=== PATIENT | male | born 1990 | race Caucasian/White ===

== ENCOUNTER 2021-12-19 11:27 | Emergency (ER) | payer OTHER ==
[2021-12-19] MEDS ORDERED: Sodium Chloride 0.9% 10 ML Syringe FLUSH PRN (11:37)
[2021-12-19] MEDS ORDERED: Nitroglycerin 0.4 MG Tab.SL SL PRN (11:38)
[2021-12-19] MEDS ORDERED: Aspirin 81 MG Tab.Chew PO ONE (11:38)
[2021-12-19 12:00] LABS: PTT,PARTIAL THROMBOPLSTIN TIME 28.3 SEC (22.0-34.0)
[2021-12-19 12:05] LABS: CHLORIDE,CL 105 mmol/L (98-107); SODIUM,NA 141 mmol/L (136-145)
== END 2021-12-19 14:07 | disposition home or self-care (01) ==
LOC: DL.ED 11:27
DX: R07.89 Other chest pain (principal); R03.0 Elevated blood-pressure reading, without diagnosis of hypertension; E66.9 Obesity, unspecified; Z68.41 Body mass index [BMI] 40.0-44.9, adult
CPT/HCPCS: 36415; 71045; 80053; 83690; 84484; 85025; 85379; 85610; 85730; 93005; 93010; 99283; 99285-25; A9270-GY

== ENCOUNTER 2022-02-22 17:07 | Emergency (ER) | payer OTHER ==
[2022-02-22] MEDS ORDERED: Cyclobenzaprine 10 MG Tab PO ONE (17:08)
[2022-02-22] MEDS ORDERED: Ketorolac 30 MG/ML SDV IVPUSH ONE (17:17)
[2022-02-22] MEDS ORDERED: methylPREDNISolone Sodium Succinate 125 MG/2 ML SDV IVPUSH ONE (18:05)
[2022-02-22] MEDS ORDERED: Cyclobenzaprine 10 MG Tab ONE (18:52)
== END 2022-02-22 19:02 | disposition home or self-care (01) ==
LOC: DL.ED 17:07
DX: S39.012A Strain of muscle, fascia and tendon of lower back, initial encounter (principal); E66.9 Obesity, unspecified; Z68.41 Body mass index [BMI] 40.0-44.9, adult; Z79.899 Other long term (current) drug therapy; X50.1XXA Overexertion from prolonged static or awkward postures, initial encounter
CPT/HCPCS: 96374; 96375; 99283-25; A9270-GY; J1885; J2930